=== PATIENT | male | born 1980 | race Caucasian/White ===

== ENCOUNTER 2019-01-15 12:58 | Emergency (ER) ==
[2019-01-15 13:17] VITALS: BP 116/78; TEMP 97; BMI 30.4
--- NOTE | 2019-01-15 18:49 | ED.PDOC ---
General Stated Complaint: Cough congestion, chest tightness and wheezing. Similar to episode that was similar last year Time Seen by Physician: 18:30 Mode of Arrival: Walk-In Information Source: Patient Exam Limitations: No limitations Nursing and Triage Documentation Reviewed and Agree: Yes Does patient meet sepsis criteria?: No System Inflammatory Response Syndrome: Not Applicable <GIULIANA ERICKSON - Last Filed: 01/15/19 20:01> <NIYA MAC - Last Filed: 01/15/19 21:01> ED Provider: Dr. NIYA MAC Chief Complaint: Respiratory Complaint Sepsis Protocol: For patient's 13 years and over: Temp is 96.8 and below OR 101 and greater Pulse >90 BPM Resp >20/minute Acutely Altered Mental Status Are patient's symptoms suggestive of a new infection, such as: -Pneumonia -Skin, Soft Tissue -Endocarditis -UTI -Bone, Joint Infection -Implantable Device -Acute Abdominal Infection -Wound Infection -Meningitis -Blood Stream Catheter Infection -Unknown Respiratory Complaint Exam - Asthma Complaint/Exam Symptoms Are: Still present Timing: Intermittent Initial Severity: Mild Current Severity: Mild Character: Reports: Wheezing Aggravating: Reports: Exertion, Weather change, Allergens Alleviating: Reports: None Associated Signs and Symptoms: Denies: Fever, SOA, Chest pain, Edema, Calf pain , URI, Sinus infection, Rapid breathing, Labored breathing Related History: Reports: Similar episode Related Surgical History: Reports: None Status Asthmaticus Risk Factors: Reports: None Current Asthma Medication Usage: No Recent Antibiotics: No Respiratory Distress: None Accessory Muscle Use: No Retractions: Not Present Diminished Breath Sounds: Yes Prolonged Expiratory Phase: No Unable to Speak Full Sentences: No Fatigue Present: No Differential Diagnoses: Bronchospasm <GIULIANA ERICKSON - Last Filed: 01/15/19 20:01> Review of Systems - Review Of Systems Constitutional: Reports: No symptoms Eyes: Reports: No symptoms Ears, Nose, Mouth, Throat: Reports: No symptoms Respiratory: Reports: Wheezing Cardiac: Reports: No symptoms GI: Reports: No symptoms : Reports: No symptoms Musculoskeletal: Reports: No symptoms Skin: Reports: No symptoms Neurological: Reports: No symptoms Endocrine: Reports: No symptoms Hematologic/Lymphatic: Reports: No symptoms All Other Systems: Reviewed and Negative <GIULIANA ERICKSON - Last Filed: 01/15/19 20:01> Past Medical History - Past Medical History Previously Healthy: Yes Endocrine: Reports: None Cardiovascular: Reports: None Respiratory: Reports: None Hematological: Reports: None Gastrointestinal: Reports: None Genitourinary: Reports: None Neuro/Psych: Reports: None Musculoskeletal: Reports: None Cancer: Reports: None - Surgical History General Surgical History: Reports: None - Family History Family History: Reports: None - Social History Smoking Status: Current every day smoker, Light tobacco smoker Hx Substance Use: No Alcohol Screening: Occasionally <GIULIANA ERICKSON - Last Filed: 01/15/19 20:01> Physical Exam - Physical Exam Appearance: Well-appearing, No pain distress, Well-nourished Ill-appearing: Mild Pain Distress: None Eyes: MICAH, EOMI, Conjunctiva clear ENT: Ears normal, Nose normal, Oropharynx normal Respiratory: Airway patent, Breath sounds clear, Breath sounds equal, Breath sounds diminished, Wheezes Cardiovascular: RRR, Pulses normal, No rub, No murmur GI/: Soft, Nontender, No masses, Bowel sounds normal, No Organomegaly Musculoskeletal: Normal strength, ROM intact, No edema, No calf tenderness Skin: Warm, Dry, Normal color Neurological: Sensation intact, Motor intact, Reflexes intact, Cranial nerves intact, Alert, Oriented Psychiatric: Affect appropriate, Mood appropriate <GIULIANA ERICKSON - Last Filed: 01/15/19 20:01> Interpretation - Radiology Interpretation Radiology Interpretation By: Radiologist Radiology Results: Negative Exam Interpreted: CXR - EKG Interpretation Time of EKG #1: 19:50 Rate: Normal Rhythm: Sinus Ectopy: None [place]: NL ST Segment: Normal Interpretation: normal EKG <NIYA MAC Last Filed: 01/15/19 21:01> Physician Notification - Case Discussed Physician Notified: Dr Mac Time of Notification: 19:30 (assumes mgt) <GIUILANA ERICKSON - Last Filed: 01/15/19 20:01> Critical Care Note - Critical Care Note Total Time (mins): 0 <GIULIANA ERICKSON Last Filed: 01/15/19 20:01> Course - Course Hematology/Chemistry: 01/15/19 19:06 01/15/19 19:06 <GIULIANA ERICKSON - Last Filed: 01/15/19 20:01> - Course Hematology/Chemistry: 01/15/19 19:06 01/15/19 19:06 <NIYA MAC Filed: 01/15/19 21:01> - Course Orders, Labs, Meds: Lab Review 01/15/19 01/15/19 19:06 19:06 WBC 6.20 RBC 4.37 L Hgb 13.7 L Hct 39.7 L MCV 90.8 MCH 31.4 H MCHC 34.5 RDW Coeff of Sue 12.8 Plt Count 204 Immature Gran % (Auto) 0.2 Neut % (Auto) 52.4 Lymph % (Auto) 36.3 [place] % (Auto) 7.7 Eos % (Auto) 2.6 Baso % (Auto) 0.8 Immature Gran # (Auto) 0.0 Neut # (Auto) 3.3 Lymph # (Auto) 2.3 [place] # (Auto) 0.5 Eos # (Auto) 0.2 Baso # (Auto) 0.1 Sodium 138.1 Potassium 3.82 Chloride 100.6 Carbon Dioxide 26.2 Anion Gap 15.12 BUN 12.9 Creatinine 0.87 Estimated GFR (MDRD) 98.00 BUN/Creatinine Ratio 14.82 Glucose 95.9 Calcium 9.16 Total Bilirubin 0.62 AST 33.6 ALT 35.3 Alkaline Phosphatase 45.3 Total Protein 7.65 Albumin 4.60 Globulin 3.05 Albumin/Globulin Ratio 1.50 Orders Category Date Time Status EKG-(ED ONLY) Stat CARDIO 01/15/19 18:51 Ordered NEBULIZER TREATMENT Stat CARDIO 01/15/19 18:52 Ordered NEBULIZER TREATMENT Stat CARDIO 01/15/19 18:53 Ordered CBC W/ AUTO DIFF Stat LAB 01/15/19 19:06 Completed CMP [COMPREHENSIVE METABOLIC PANEL] Stat LAB 01/15/19 19:06 Completed Ipratropium/Albuterol Neb [Duoneb] MEDS 01/15/19 18:52 Discontinued 1 vial NEB ONCE STA CHEST, 2 VIEWS PA & LAT Stat RADS 01/15/19 19:22 Completed Medications Discontinued Medications Generic Name Dose Route Start Last Admin Trade Name Freq PRN Reason Stop Dose Admin Albuterol/Ipratropium 1 vial 01/15/19 18:52 Duoneb NEB 01/15/19 18:53 ONCE STA Vital Signs: Temp Pulse Resp BP Pulse Ox 01/15/19 13:02 97.0 F L 73 20 116/78 97 Departure <GIULIANA ERICKSON - Last Filed: 01/15/19 20:01> - Departure Time of Disposition: 21:40 Pt referred to PMD for follow-up: Yes IPMP verified?: No Disposition Discussed With: Patient, Family <NIYA MAC - Last Filed: 01/15/19 21:01> - Departure Disposition: HOME SELF-CARE Discharge Problem: Acute bronchitis Qualifiers: Bronchitis organism: other organism Qualified Code(s): J20.8 - Acute bronchitis due to other specified organisms Condition: Fair Additional Instructions: Take medications as prescribed Quit smoking Prescriptions: Albuterol Sulfate [Proair Hfa] 2 puff IH Q6H PRN #1 puff PRN Reason: wheezing Azithromycin [Zithromax] 250 mg PO DIRECTED #6 tablet Prednisone 20 mg PO DAILYWM #5 tablet Allergies/Adverse Reactions: Allergies No Known Allergies Allergy (Unverified 01/15/19 13:08) Home Medications: Ambulatory Orders Albuterol Sulfate [Proair Hfa] 2 puff IH Q6H PRN #1 puff 01/15/19 Azithromycin [Zithromax] 250 mg PO DIRECTED #6 tablet 01/15/19 Prednisone 20 mg PO DAILYWM #5 tablet 01/15/19
[2019-01-15] MEDS ORDERED: DUONEB NEB STA (18:52)
--- NOTE | 2019-01-15 19:53 | DI ---
EXAM: Chest two views HISTORY: Shortness of breath FINDINGS: Normal cardiac and mediastinal contours. Normal pulmonary vasculature. Lungs are clear. No significant abnormality of the bony thorax. IMPRESSION: Chest radiograph within normal limits.
[2019-01-15] MEDS ORDERED: SOLU-MEDROL 125 MG IVP STA (20:56)
[2019-01-15] MEDS ORDERED: XOPENEX 1.25 MG NEB STA (20:56)
[2019-01-15] MEDS ORDERED: ZITHROMAX PO STA (20:57)
[2019-01-15] MEDS ORDERED: SOLU-MEDROL 125 MG IM STA (20:58)
== END 2019-01-15 21:32 | disposition home or self-care (01) ==
LOC: ED 12:58
DX: J20.9 Acute bronchitis, unspecified (principal); F17.210 Nicotine dependence, cigarettes, uncomplicated
CPT/HCPCS: 36415; 80053; 85025; 93005; 93010; 94640; 96372; 99283